=== PATIENT | male | born 1940 | race Caucasian/White ===

== ENCOUNTER → 2016-06-12 10:36 | Day surgery (SDC) | payer MEDICARE ==
--- NOTE | 2016-05-28 13:42 | HP ---
PREOPERATIVE HISTORY AND PHYSICAL: DATE OF ADMISSION: 06/12/16 This patient is scheduled for same-day surgery admission by Dr. Cole on 06/12/16. ATTENDING PHYSICIAN: Livan Cole MD (dictated by Maxi Issa NP) CHIEF COMPLAINT: Recurrent right inguinal hernia. HISTORY OF PRESENT ILLNESS: The patient is a 75-year-old male, recently evaluated by Dr. Cole for a right inguinal hernia. The patient describes a greater than 1- year history of right inguinal hernia bulge, worse when lifting items. It is relieved with rest. It has become worse over the course of the last several months. The patient has a history of open right inguinal hernia repair in [place] in 1988 and he believes this was done without a mesh. The patient denies any nausea or vomiting or fever or chills or change in bowel habits or dysuria. The patient is known to Dr. Cole for open repair of ventral hernia with mesh, July 2015. Dr. Cole examined the patient and discussed the findings with the patient, which are consistent with recurrent right inguinal hernia. Dr. Cole has recommended laparoscopic right inguinal hernia repair with mesh as a same-day surgery procedure and has discussed the nature of the surgical procedure, the rationale for the procedure, and the relevant risks, and benefits. Today, I reviewed the typical postoperative care and recovery, the patient has had a chance to ask questions and stated that he understands the information and is satisfied with the answers given to his questions. He will sign surgical consent on the day of surgery. PAST MEDICAL HISTORY: Significant for coronary artery disease with stenting of multiple coronary arteries at [facility] in 2013; he is followed locally by Dr. Dahl and his last visit was on 09/13/15. Please see the attached note from that visit for details. He also has history of hyperlipidemia, hypertension, hypothyroidism, and tobacco use. PAST SURGICAL HISTORY: Open right inguinal hernia repair 1988, open ventral hernia repair with mesh July [address] 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 CURRENT MEDICATIONS: 1. Amlodipine 2.5 mg p.o. daily. 2. Levothyroxine 88 mcg p.o. daily. 3. Aspirin 81 mg p.o. daily and he will take his last dose preoperatively, 08/17. 4. He is on many vitamin supplements and he plans to stop all of those for a week preoperatively. ALLERGIES: No known drug allergies. FAMILY HISTORY: Negative for anesthesia problems, bleeding tendencies, or clotting disorders. 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 He has a 50 plus pack year smoking history and currently smokes an occasional cigarette. He currently drinks 3 to 4 alcoholic beverages daily. He denies the use of other substances. REVIEW OF SYSTEMS: General: No recent constitutional symptoms, weight has been stable. Cardiovascular: No chest pain, palpitations, or shortness of breath, and he seems to have good exercise tolerance. Last visit with Dr. Dahl, 09/13/15. Please see attached consultation note from Dr. Dahl for details. Respiratory: Previous history of tobacco use. Currently smokes an occasional cigarette. No chronic cough. GI: Mild reflux symptoms, well controlled with diet. No significant lower GI symptoms. Genitourinary: No problems reported. Endocrine: Hypothyroidism managed by Dr. Leong. No history of diabetes. No history of deep vein thrombosis or pulmonary embolism, no history of blood transfusions; when he was maintained on Plavix, he had an episode of hemoptysis in April 2014, for which he was evaluated and treated at [facility] in [place], bronchoscopy and CT were apparently done and the hemoptysis was felt to be related to his antiplatelet agents and these have been discontinued. With anesthesia for the open ventral hernia repair in July 2015, he reports dry heaving, vomiting, and constipation. He denies any musculoskeletal complaints or neurologic complaints. PHYSICAL EXAMINATION GENERAL SURVEY: The patient is a 75-year-old male well developed, well nourished, in no acute distress. VITAL SIGNS: Height 71 inches, weight 183 pounds, body mass index 25.5. Blood pressure 132/78, pulse 72 and regular, respiratory rate 16, temperature 96.8 tympanic. HEENT: Benign. NECK: Supple. No increased JVP. Carotid without bruits. LUNGS: Breath sounds bilaterally clear and equal. HEART: Regular rate and rhythm. No murmurs or rubs or gallops appreciated. ABDOMEN: Active bowel sounds. Soft, nontender, nondistended. No obvious organomegaly or umbilical hernia. Inguinal exam as done by Dr. Cole revealed a right inguinal bulge, no left inguinal hernia was appreciated, the scrotum revealed normally descended testicles without lesion. Well-healed upper midline incision with no evidence of recurrent hernia at this site. RECTAL EXAM: Deferred. EXTREMITIES: Warm without edema or skin ulcerations. NEUROLOGIC: Alert and oriented x3, steady gait. BACK: No CVA tenderness. SKIN: Warm, dry, and intact. IMPRESSION: Recurrent right inguinal hernia. PLAN: Same-day surgery admission to Dr. Cole's service on 06/12/16 , for laparoscopic repair of right inguinal hernia with mesh. MAXI ISSA NP CC: Livan Cole MD, [facility]; Dr. Dahl; Dr. Phipps* [id number]/[facility] #: [id number] MTDD
[~2016-06-12 10:36] MED LIST: Acetaminophen IV 1GM/100ML * 100 ML IVPB ONE; Acetaminophen IV 1GM/100ML * 100 ML ONE; Buffered Lidocaine 1% SYRIN* 3 ML/SYR SYRINGE INTRADERM ONE; Cisatracurium* 2 MG/ML MDV 5 ML ONE; Dexamethasone IV* 4 MG/ML 1 ML (4 MG) ONE; EPHEDrine (Pressors)* 50 MG/ML VIAL ONE; Famotidine IV* 10 MG/ML 2 ML (20 mg) IV ONE; Famotidine IV* 10 MG/ML 2 ML (20 mg) ONE; HYDROmorphone* 1 MG/ML 1 ML SYR IV PRN; KETAMINE HCL* 50 MG/ML 10 ML VIAL ONE; Ketorolac INJ* 30 MG/ML 1 ML VIAL ONE; Lidocaine 2% PF* 5 ML VIAL ONE; Metoclopramide TAB* 10 MG ONE; Metoclopramide TAB* 10 MG PO ONE; Midazolam* 1 MG/ML 5 ML VIAL (5 MG) ONE; Ondansetron INJ* 2 MG/ML VIAL IV PRN; Ondansetron INJ* 2 MG/ML VIAL ONE; Propofol* 10 MG/ML 20 ML BTL IV PUSH ONE; ceFAZolin 2 GM PREMIX(*) 2 GM/50 ML BAG IVPB ONE; fentaNYL* 50 MCG/ML 2 ML VIAL (100 MCG VIAL) IV PRN; fentaNYL* 50 MCG/ML 2 ML VIAL (100 MCG VIAL) ONE; oxyCODONE/Acetamin 5/325 MG* TAB PO PRN
[2016-06-12 15:33] VITALS: BP 151/90
--- NOTE | 2016-06-13 16:28 | OP ---
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 Stark. ANESTHESIA: General. PRE-OP DIAGNOSIS: Recurrent right inguinal hernia. POST-OP DIAGNOSIS: Recurrent right inguinal hernia. OPERATIVE PROCEDURE: Laparoscopic right inguinal hernia repair with mesh. ESTIMATED BLOOD LOSS: Minimal. FLUIDS: Minimum crystalloid fluid given. SPECIMEN: None. COUNT: Lap pad count and instrument correct at the end of the procedure. CONDITION ON DISCHARGE: The patient tolerated the procedure well and was discharged home after the procedure. DESCRIPTION OF PROCEDURE: The patient was identified in the preoperative area, he was marked appropriately, brought to the operating room, and placed on the operating room table in the supine position. Preoperative antibiotics were given, sequential devices were placed on bilateral lower extremities. General anesthesia was induced. The patient's abdomen was prepped and draped in a standard surgical fashion after hair was clipped. An infraumbilical incision was made, this was deepened down to the anterior fascia on the left. This was incised and the rectus pillar retracted laterally. Blunt dissection was then carried out in the preperitoneal plane and a 12-mm trocar was then inserted. Laparoscope was inserted through this and loose areolar tissue was broken down to expose the preperitoneal plane. Two additional 5-mm trocars were then placed in the lower midline. Attention was turned towards the pubic symphysis. This was cleared off as well as Malvin's ligament on the left and the right. A direct hernia was identified pinching up towards the direct triangle to the direct space. The epigastric vessels were identified and maintained anteriorly and the space above was started to get cleared out with blunt dissection. Attention was then returned to the direct hernia. This was stiff and difficult to reduce with gentle traction and required more firm grasp. We did violate the peritoneum in doing so. The defect was large, but with the peritoneum completely reduced, we reviewed this, contents in the abdomen were not part of the injury of the peritoneum and decision was made to place an Endoloop at this site. A 0 chromic Endoloop was then utilized to cinch down the peritoneum to avoid exposure of the abdomen. Attention was turned towards the Bogros' space. This was cleared off and spermatic structures identified. There was no indirect hernia, but we did reflect the peritoneum posteriorly as best as possible. A small opening was made in this thin peritoneum, which was reapproximated with a 5-mm . Next, a large right-sided Bard 3D mesh was then utilized. It was placed into the preperitoneal space, allowed to unfurl, tacked to Malvin's ligament, and also just above the pubic symphysis. It covered the full myopectineal orifice that was dissected nicely. Hemostasis was excellent and the preperitoneal plane was then allowed to collapse. Trocar was removed under direct vision. Attention was then turned towards the umbilical port site, posterior fascia and peritoneum were opened up, and the 12-mm trocar was inserted at the abdomen, which was then allowed to insufflate to a pressure of 15 mmHg. Laparoscope was inserted through this and the patient was placed in the Trendelenburg. We reviewed the peritoneum, mesh could be seen through the peritoneum, but there was no violation and no exposed mesh at the site. Therefore, the abdomen was allowed to collapse. Trocar was removed under direct vision. The posterior fascia was reapproximated with an interrupted 2-0 Polysorb suture. The anterior fascia was closed with 0 Polysorb suture in a figure-of-8 fashion, and all three skin incisions were reapproximated with 4-0 Monocryl subcuticular sutures. Steri-Strips and sterile dressing were applied. The patient tolerated the procedure well, was woken up in the OR, and transferred to the PACU in stable condition. CC: Dr. Debbie Phipps; [facility]* [id number]/[facility] #: [id number] SALONI
== END | disposition home or self-care (01) ==
LOC: OR 10:36
PROVIDERS: ATTEND Surgery
DX: K40.91 Unilateral inguinal hernia, without obstruction or gangrene, recurrent (principal); I25.10 Atherosclerotic heart disease of native coronary artery without angina pectoris; Z95.5 Presence of coronary angioplasty implant and graft; E87.5 Hyperkalemia; I10 Essential (primary) hypertension; E03.9 Hypothyroidism, unspecified; Z72.0 Tobacco use
CPT/HCPCS: A9270-GY; C1776; C1781; J0690; J1100; J1885; J2250; J2405; J2704; J3010

== ENCOUNTER 2016-12-02 10:38 | Emergency (ER) | payer MEDICARE ==
--- NOTE | 2016-12-02 11:59 | RAD ---
HISTORY: Hemoptysis COMPARISONS: May 24, 2016 VIEWS: 4: Frontal dual-energy and lateral views of the chest. FINDINGS: CARDIOMEDIASTINAL SILHOUETTE: The cardiomediastinal silhouette is normal. SHON: The shon are normal. PLEURA: The costophrenic angles are sharp. No pleural abnormalities are noted. LUNG PARENCHYMA: There is hyperinflation with flattening of the diaphragm and expansion of the AP diameter of the chest. ABDOMEN: The upper abdomen is clear. There is no subphrenic gas. BONES AND SOFT TISSUES: No bone or soft tissue abnormalities are noted. OTHER: None. IMPRESSION: HYPERINFLATION. NO ACTIVE CARDIOPULMONARY DISEASE.
[2016-12-02 12:20] VITALS: BP 147/72
--- NOTE | 2016-12-02 21:10 | ED ---
Chriss Hager Nilda, scribed for Eulogio Mcgee MD on 12/02/16 at 1116 . Respiratory - HPI Summary HPI Summary: This patient is a 76 year old M presenting to [facility] accompanied by with a chief complaint of mild hemoptysis this morning. Patient was clearing his throat when he coughed up a small blood clot. There have been two other episodes of hemoptysis since Friday. The patient rates the pain 0/10 in severity. Symptoms aggravated by nothing and alleviated by spontaneous resolution. Patient reports intermittent epistaxis (past 3 weeks). Patient denies cough and fever. He is a smoker. PSHx stents and bronchoscopy. Patient was on Plavix for 1.5 years but discontinued last year. FHx of lung cancer, DM, HTN. - History of Current Complaint Chief Complaint: EDGeneral Stated Complaint: SPITTING UP BLOOD Time Seen by Provider: 12/02/16 10:56 Hx Obtained From: Patient Onset/Duration: Sudden Onset, Lasting Days Timing: Intermittent Episodes Lasting: - seconds, 3 episodes since 5 days ago. Initial Severity: Mild Current Severity: None Pain Intensity: 0 Character: Cough (Productive) - blood when clearing throat Sputum Amount: Small Sputum Color: Red (Blood) Aggravating Factor(s): Nothing Alleviating Factor(s): Spontaneous Resolution - Allergy/Home Medications Allergies/Adverse Reactions: Allergies Allergy/AdvReac Type Severity Reaction Status Date / Time No Known Allergies Allergy Verified 12/02/16 10:39 PMH/Surg Hx/FS Hx/Imm Hx Endocrine/Hematology History: Reports: Hx Thyroid Disease - HYPO Denies: Hx Diabetes, Hx Systemic Lupus Erythematosus Cardiovascular History: Reports: Hx Angina, Hx Coronary Artery Disease, Other Cardiovascular Problems/Disorders - 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 Denies: Hx Congestive Heart Failure, Hx Hypercholesterolemia, Hx Hypertension , Hx Myocardial Infarction, Hx Valvular Heart Disease Respiratory History: Reports: Other Respiratory Problems/Disorders - 04/2014 HEMOPTYSIS, BRONCH AND CT DONE, OK NOW Denies: Hx Asthma, Hx Chronic Obstructive Pulmonary Disease (COPD) GI History: Reports: Hx Gastroesophageal Reflux Disease, Hx Hiatal Hernia, Other GI Disorders - DX 05/16 WITH EPIGASTRIC HERNIA History: Denies: Hx Dialysis, Hx Renal Disease Musculoskeletal History: Denies: Hx Rheumatoid Arthritis Comment Only: Other Musculoskeletal History - 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 RIGHT INGUINAL HERNIA- 1989- [facility]. 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 AND INSERTION OF 5 STENTS- 2013- [facility] Hx Anesthesia Reactions: No Infectious Disease History: No Infectious Disease History: Denies: History Other Infectious Disease, Traveled Outside the [place] in Last 30 Days - Family History Known Family History: Positive: Cardiac Disease, Hypertension, Diabetes - Social History Alcohol Use: Daily Alcohol Amount: 3-4 DRINKS 5 DAYS/WEEK Substance Use Type: Reports: Marijuana Substance Use Comment - Amount & Last Used: FREQUENT USE OF MARIJUANA Smoking Status (MU): Light Every Day Tobacco Smoker Type: Cigarettes Amount Used/How Often: 1/2 PPD FOR 45+ YRS, STOPPED CIGARETTES 11/15, SMOKES MARIJUANA FREQUENTLY Length of Time of Smoking/Using Tobacco: 45+ YRS Have You Smoked in the Last Year: Yes - STOPPED CIGARETTES 11/15, SMOKES MARIJUANA FREQUENTLY Review of Systems Negative: Fever Positive: Epistaxis Positive: Other - cleared throat and coughed up small amount of blood. Negative : Cough All Other Systems Reviewed And Are Negative: Yes Physical Exam Triage Information Reviewed: Yes Vital Signs On Initial Exam: Initial Vitals Temp Pulse Resp BP Pulse Ox 98.2 F 63 18 154/78 96 12/02/16 10:39 12/02/16 10:39 12/02/16 10:39 12/02/16 10:39 12/02/16 10:39 Vital Signs Reviewed: Yes Appearance: Positive: Well-Appearing, No Pain Distress Skin: Positive: Warm, Skin Color Reflects Adequate Perfusion, Dry Head/Face: Positive: Normal Head/Face Inspection Eyes: Positive: Normal ENT: Positive: Normal ENT inspection Respiratory/Lung Sounds: Positive: Clear to Auscultation, Breath Sounds Present Cardiovascular: Positive: RRR Abdomen Description: Positive: Nontender, Soft Bowel Sounds: Positive: Present Musculoskeletal: Positive: Normal Neurological: Positive: Normal Psychiatric: Positive: Normal, Affect/Mood Appropriate - Bryan Coma Scale Coma Scale Total: 15 Diagnostics - Vital Signs Vital Signs Temp Pulse Resp BP Pulse Ox 12/02/16 10:39 98.2 F 63 18 154/78 96 - Laboratory Lab Statement: Any lab studies that have been ordered have been reviewed, and results considered in the medical decision making process. - Radiology CXR Radiology Interpretation Completed By: Radiologist Re-Evaluation - Re-Evaluation First Eval Re-Evaluation Time: 12:07 Comment: ED physician discussed test results with patient and family. Disposition - Course Course Of Treatment: Mr. Benson was here after a couple of episodes of clearing his throat and bringing up blood. HE is a smoker and concerned about lung CA. He has been having some minor nose bleeds since the heat came on at his house. A CXR was negative. I referred him to his PMD. He qualifies for the [facility] free low exposure screening CT scan which I think would be the next step. - Diagnoses Provider Diagnoses: Hemoptysis Discharge - Discharge Plan Condition: Stable Disposition: HOME Patient Education Materials: Hemoptysis (ED) Referrals: Debbie Phipps MD [Primary Care Provider] - 2 Days Additional Instructions: RETURN TO THE EMERGENCY DEPARTMENT FOR CHANGING OR WORSENING SYMPTOMS. The documentation as recorded by the Chriss bland Nilda accurately reflects the service I personally performed and the decisions made by me, Eulogio Mcgee MD.
== END 2016-12-02 12:22 | disposition home or self-care (01) ==
LOC: ED 10:38
DX: R04.0 Epistaxis (principal); R04.2 Hemoptysis
CPT/HCPCS: 71020; 99282

== ENCOUNTER 2017-07-17 10:25 | Emergency (ER) | payer MEDICARE ==
--- NOTE | 2017-07-17 11:05 | UC ---
Skin Complaint HPI - HPI Summary HPI Summary: 76 year old male with tick bite. No bulls eye lesion. no fever no myalgias. had 3 ticks he removed this AM On in the inner thigh left with redness and concern for bulls eye lesion. had taken doxy this AM that was already he has concern for for developing lyme feels no sx of lyme no acute concerns otherwise - History of Current Complaint Time Seen by Provider: 07/17/17 10:53 Stated Complaint: TICK BITE Onset/Duration: Sudden Onset Aggravating Factor(s): Nothing Alleviating Factor(s): Nothing Related History: Possible Reaction to: Insect - Allergy/Home Medications Allergies/Adverse Reactions: Allergies Allergy/AdvReac Type Severity Reaction Status Date / Time No Known Allergies Allergy Verified 07/17/17 10:58 Review of Systems Skin: Other - tick bite Is Patient Immunocompromised?: No All Other Systems Reviewed And Are Negative: Yes PMH/Surg Hx/FS Hx/Imm Hx Previously Healthy: Yes - Surgical History Surgical History: Yes Surgery Procedure, Year, and Place: AMPUTATION TIPS OF RIGHT MIDDLE 3 FINGERS- 1966- [place]. RIGHT INGUINAL HERNIA- 1989- [facility] [place]. 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- [facility] - Family History Known Family History: Positive: Cardiac Disease, Hypertension, Diabetes - Social History Occupation: Retired Alcohol Use: Daily Alcohol Amount: 3-4 DRINKS 5 DAYS/WEEK Substance Use Type: Marijuana Substance Use Comment - Amount & Last Used: FREQUENT USE OF MARIJUANA Smoking Status (MU): Light Every Day Tobacco Smoker Type: Cigarettes Amount Used/How Often: 1/2 PPD FOR 45+ YRS, STOPPED CIGARETTES 11/15, SMOKES MARIJUANA FREQUENTLY Length of Time of Smoking/Using Tobacco: 45+ YRS Have You Smoked in the Last Year: Yes - STOPPED CIGARETTES 11/15, SMOKES MARIJUANA FREQUENTLY When Did the Patient Quit Smoking/Using Tobacco: 11/2014 STOPPED CIGARETTES, USES MARIJUANA FAIRLY OFTEN Household Exposure Type: Cigarettes Cessation Counseling: Patient Advised to Stop Physical Exam Triage Information Reviewed: Yes Appearance: Well-Appearing, No Pain Distress, Well-Nourished Vital Signs Reviewed: Yes Eyes: Positive: Conjunctiva Clear ENT: Positive: Hearing grossly normal Respiratory Exam: Normal Cardiovascular Exam: Normal Neurological Exam: Normal Psychological Exam: Normal Skin: Positive: Other - tick bite reddened area < 5x5 mm no discharge no EM no ecchymosis right forearm and left inner thigh . some darkening of the center of the lesion on inner thigh Course/Dx - Course Course Of Treatment: he is concerned for bullseye lesion in the medial thigh -- perhaps its started to develop this but could just be irriation from the tick and removal -- has pulled off dozens of ticks over the past 5 years per pt and he will monitor the area and if develop s any bulls eye lesion then start doxy and ensure to f/u for this with PCP and also the BP should be further evaluated but could be higher due to environement - Differential Diagnoses - Skin Complaint Differential Diagnoses: Tick Born Illness, Other - tick bite - Diagnoses Provider Diagnoses: tick bite Discharge - Sign-Out/Discharge Documenting (check all that apply): Discharge/Admit/Transfer - Discharge Plan Condition: Good Disposition: HOME Prescriptions: Doxycycline Hyclate 100 mg PO BID #42 tablet Patient Education Materials: Tick Bite (ED) Referrals: Debbie Phipps MD [Primary Care Provider] - 4 Days Additional Instructions: As we discussed if you develop the Bulls Eye lesion to start the antibiotics for 3 weeks . Also your blood pressure if elevated so please follow up with your primary care doctor - Billing Disposition and Condition Condition: GOOD Disposition: HOME
[2017-07-17 11:17] VITALS: BP 157/100
== END 2017-07-17 12:05 | disposition home or self-care (01) ==
LOC: UCEAST 10:25
DX: S70.362A Insect bite (nonvenomous), left thigh, initial encounter (principal); W57.XXXA Bitten or stung by nonvenomous insect and other nonvenomous arthropods, initial encounter; Y93.9 Activity, unspecified; Y92.9 Unspecified place or not applicable; Z87.891 Personal history of nicotine dependence
CPT/HCPCS: 99212; G0463

== ENCOUNTER 2023-03-16 04:34 | Inpatient (IN) ==
[2023-03-16 05:04] LABS: Hematocrit 38.3 % (38-53); Mean Corpuscular Hemoglobin 29.4 pg (27-33); Mean Corpuscular Hgb Conc 33.9 g/dL (31-36); Mean Corpuscular Volume 86.8 fL (80-97); Mean Platelet Volume 7.3 fL (7.5-11.2); Platelet Count 307 10^3/uL (150-450); Red Blood Count 4.41 10^6/uL (4.06-5.63); Red Cell Distribution Width 14.3 % (12-17); White Blood Count 13.8 10^3/uL (3.6-10.2)
[2023-03-16 05:11] LABS: INR 0.97 (0.83-1.13)
[2023-03-16 05:20] LABS: ABS Basophils 0.1 10^3/uL (0.0-0.1); ABS Eosinophils 0.4 10^3/uL (0.0-0.5); ABS Monocytes 0.9 10^3/uL (0.0-1.1); ABS Neutrophils 4.3 10^3/uL (1.5-7.6); ABS Nucleated RBC 0.01 10^3/ul; Eosinophil % 3.2 %; Nucleated Red Blood Cells % 0.1 %/100WBC (0.0-0.8)
[2023-03-16 05:22] LABS: Albumin 4.3 g/dL (3.2-5.2); Albumin/Globulin Ratio 1.6 (1-3); Creatinine, Serum 0.98 mg/dL (0.67-1.17); Globulin 2.7 g/dL (2-4); Potassium 3.9 mmol/L (3.5-5.0); Total Bilirubin 0.5 mg/dL (0.2-1.0)
[2023-03-16] MEDS ORDERED: Iohexol 350 (CONTRAST) 500 ML MDV IV ONE (05:49)
[2023-03-16] MEDS ORDERED: Nitro 2% OINT (Nitroglycerin) 1 INCH/PAK ONE (07:13)
[2023-03-16 07:14] LABS: High Sensitivity Troponin 1 Hr 187 pg/mL (<20)
[2023-03-16] MEDS ORDERED: Metoprolol Tartrate 5 mg VIAL 5 ml VIAL (1 mg/ml) IV ONE (07:27)
[2023-03-16] MEDS ORDERED: Heparin DRIP 25,000 UNITS BAG 25,000 UNITS/250 ML BAG IV SCH (07:30)
[2023-03-16] MEDS ORDERED: Heparin - STEMI 5,000 UNITS/ML 1 ml VIAL IV ONE (07:47)
[2023-03-16] MEDS ORDERED: Heparin DRIP 25,000 UNITS BAG 25,000 UNITS/250 ML BAG IV ONE (07:48)
[2023-03-16] MEDS ORDERED: nitroGLYCERIN DRIP 25,000 MCG/250 ML BTL ONE ×2 (07:49→09:52)
[2023-03-16 07:54] LABS: ABS Basophils 0.1 10^3/uL (0.0-0.1); ABS Eosinophils 0.1 10^3/uL (0.0-0.5); ABS Monocytes 0.6 10^3/uL (0.0-1.1); ABS Neutrophils 10.6 10^3/uL (1.5-7.6); Eosinophil % 0.5 %; Hematocrit 39.2 % (38-53); Hemoglobin 13.2 g/dL (13.2-16.3); Mean Corpuscular Hemoglobin 29.3 pg (27-33); Mean Corpuscular Hgb Conc 33.8 g/dL (31-36); Mean Corpuscular Volume 86.8 fL (80-97); Mean Platelet Volume 7.2 fL (7.5-11.2); Platelet Count 303 10^3/uL (150-450); Red Blood Count 4.51 10^6/uL (4.06-5.63); Red Cell Distribution Width 14.4 % (12-17); White Blood Count 13.2 10^3/uL (3.6-10.2)
[2023-03-16] MEDS ORDERED: nitroGLYCERIN DRIP 25,000 MCG/250 ML BTL IV SCH (08:00)
[2023-03-16] MEDS ORDERED: Heparin 5000 UNITS/ML 1 mL VIAL IV PRN (08:00)
[2023-03-16 08:11] LABS: Creatinine, Serum 0.95 mg/dL (0.67-1.17); eGFR CKD-EPI 80.9 (>60)
[2023-03-16] MEDS ORDERED: Ondansetron 4 mg VIAL 2 MG/ML 2 ml VIAL IV ONE (09:15)
[2023-03-16] MEDS ORDERED: Pantoprazole VIAL 40 MG VIAL IV ONE (09:15)
[2023-03-16] MEDS ORDERED: Flumazenil 0.5 mg/5 ml 0.1 MG/ML 5 ml VIAL IV PRN (09:43)
[2023-03-16] MEDS ORDERED: Naloxone 0.4 mg VIAL 0.4 mg/ml 1 ml VIAL IV PUSH PRN (09:43)
[2023-03-16] MEDS ORDERED: fentaNYL 100 mcg/2 ml 50 MCG/ML VIAL IV SLOW PU ONE (09:43)
[2023-03-16] MEDS ORDERED: Midazolam 10 mg/10 ml VIAL 1 mg/ml 10 ml VIAL (10 mg) IV SLOW PU ONE (09:43)
[2023-03-16] MEDS ORDERED: Sulfur Hexaflouride MICROSPHR 25 MG VIAL ONE (09:48)
[2023-03-16] MEDS ORDERED: fentaNYL 100 mcg/2 ml 50 MCG/ML VIAL ONE (09:51)
[2023-03-16] MEDS ORDERED: Midazolam 5 mg/5 ml VIAL 1 mg/ml 5 ml VIAL (5 mg) ONE (09:51)
[2023-03-16] MEDS ORDERED: Lidocaine 1% MPF 5 ML VIAL ONE (09:52)
[2023-03-16] MEDS ORDERED: Iohexol 350 (CONTRAST) 200 ML MDV IV ONE (09:52)
[2023-03-16] MEDS ORDERED: niCARdipine 0.1MG/ML IVPREMIX 20 MG/200 ML BAG IV ONE (09:52)
[2023-03-16] MEDS ORDERED: Heparin 1,000 UNIT/ML 10 ml (10,000 UNITS) CATHLAB/DIALYSIS ONE (09:52)
[2023-03-16] MEDS ORDERED: Heparin 2 UNITS/ML 1000 mls 3,000 ML IV ONE (09:52)
[2023-03-16] MEDS ORDERED: Iohexol 300 (CONTRAST) 10 ML SDV ONE (10:34)
[2023-03-16 10:37] LABS: High Sensitivity Troponin 3 Hr 4752 pg/mL (<20)
[2023-03-16] MEDS ORDERED: Ondansetron 4 mg VIAL 2 MG/ML 2 ml VIAL ONE (10:59)
[2023-03-16] MEDS ORDERED: Calcium Carb (TUMS) 500 mg CHEW TAB PO ONE (14:42)
[2023-03-16] MEDS ORDERED: Calcium Carb (TUMS) 500 mg CHEW TAB ONE (14:43)
[2023-03-16 15:53] VITALS: BP 103/66
== END 2023-03-16 14:50 | disposition short-term general hospital (02) | DRG 272 ==
LOC: ED 04:34 → EDHOLD 08:23 → ICU 09:08
PROVIDERS: ADMIT Student in an Organized Health Care Education/Training Program; ATTEND Student in an Organized Health Care Education/Training Program